=== PATIENT | male | born 1940 | race Caucasian/White ===

== ENCOUNTER 2022-09-02 17:12 | Inpatient (IN) | payer MEDICARE, OTHER ==
[2022-09-02] MEDS ORDERED: Iopamidol-370 76% 500 ML 1 ML ONE (17:30)
[2022-09-02 19:05] LABS: Hemoglobin 15.3 g/dL (14.0-18.0); Mean Corpuscular HGB CONC 33.3 g/dL (32.0-36.0); Mean Corpuscular Hemoglobin 33.8 pg (27.0-31.0); Mean Platelet Volume 8.6 fL (7.4-10.4); Platelet Count 194 10x3/uL (130-400); RBC Distribution Width 11.9 % (11.5-14.5); Red Blood Cell (RBC) Count 4.54 mill/uL (4.70-6.10); White Blood Cell (WBC) Count 15.8 10x3/uL (4.8-10.8)
[2022-09-02 19:20] LABS: Band 3 % (5-11); Eosinophils 2 % (0-10); Lymphocytes 6 % (21-51); MDiff Complete? YES; Macrocytosis SLIGHT = 6-15 cells (100X) (0-5/hpf); Monocytes 20 % (0-10); Neutrophil 67 % (42-75); Platelet Morphology Comment Appears Adequate; Reactive Lymphocytes 1 % (0-10); Stomatocytes SLIGHT = 2-5 cells (100X) (0-1/hpf)
[2022-09-02 19:28] LABS: ALT (SGPT) 23 U/L (8-55); AST (SGOT) 28 U/L (5-34); Albumin 4.1 g/dL (3.4-4.8); Alkaline Phosphatase 46 U/L (40-110); Anion Gap 13 mmol/L (10-20); BUN (Urea Nitrogen) 14 mg/dL (8.4-25.7); Bilirubin, Total 0.9 mg/dL (0.2-1.2); Calc. Creatinine Clearance 0 mL/min (70-130); Carbon Dioxide 26 mmol/L (23-31); Chloride 98 mmol/L (98-107); Estimated GFR 90; Globulin 3.5 g/dL (2.4-3.5); Glucose 93 mg/dL (83-110); Lipase 21 U/L (8-78); Potassium 3.5 mmol/L (3.5-5.1); Protein, Total 7.6 g/dL (5.8-8.1); Sodium 133 mmol/L (136-145)
[2022-09-02] MEDS ORDERED: Morphine 2 MG/ML VIAL ONE (20:21)
[2022-09-02 21:00] LABS: Bilirubin Negative (Negative); Blood, Urine Negative (Negative); Clarity Clear (Clear); Glucose, Urine (Dipstick) Normal (Negative); Ketone, Urine Negative (Negative); Leukocyte Negative Leu/uL (Negative); Nitrite Negative (Negative); Protein, Urine (Dipstick) Negative (Neg-Trace); Specific Gravity, Urine 1.026 (1.002-1.036); Urobilinogen Normal mg/dL (Less than 2)
[2022-09-02] MEDS ORDERED: Piperacillin/Tazobactam 3.375 GM VIAL ONE (22:10)
[2022-09-03 00:02] VITALS: BMI 34.7
[2022-09-03] MEDS ORDERED: Acetaminophen 325 MG TAB PO PRN (01:00)
[2022-09-03] MEDS ORDERED: Ondansetron PF 4 MG/2 ML Vial IVP PRN (01:00)
[2022-09-03] MEDS ORDERED: Ondansetron ODT 4 MG TAB SL PRN (01:00)
[2022-09-03] MEDS: Sodium Chloride 0.9% 1,000 ML IV SCH ×4 (01:20→15:21)
[2022-09-03 02:12] LABS: SARS-CoV-2 NAA Rapid Test Not Detected (NotDetected)
[2022-09-03] MEDS ORDERED: Piperacillin/Tazobactam 3.375 GM in Sodium Chloride 0.9% 100 ML IVPB SCH (04:00)
[2022-09-03] MEDS ORDERED: Ketorolac Tromethamine 30 MG/ML VIAL IVP PRN (05:40)
[2022-09-03] MEDS ORDERED: Morphine 4 MG/ML VIAL SLOW IVP PRN (09:06)
[2022-09-03] MEDS ORDERED: Nitroglycerin 0.4 MG TAB (25 Tab Bottle) SL PRN (09:07)
[2022-09-03] MEDS: Piperacillin/Tazobactam 3.375 GM in Sodium Chloride 0.9% 100 ML IVPB SCH ×2 (11:46→21:09)
[2022-09-03] MEDS ORDERED: Ibuprofen 600 MG TAB PO PRN (19:01)
[2022-09-03] MEDS ORDERED: Acetaminophen 500 MG TAB PO PRN (19:01)
[2022-09-03] MEDS ORDERED: traMADol HCl 50 MG TAB PO PRN (19:02)
[2022-09-04] MEDS: Piperacillin/Tazobactam 3.375 GM in Sodium Chloride 0.9% 100 ML IVPB SCH (04:32)
[2022-09-04] MEDS: Sodium Chloride 0.9% 1,000 ML IV SCH (04:36)
[2022-09-04] MEDS ORDERED: Bupivacaine/Epinephrine 0.25% 30 ML VIAL ONE (06:27)
[2022-09-04] MEDS ORDERED: SUGAMMADEX SODIUM 200 MG/2 ML VIAL ONE (06:38)
[2022-09-04] MEDS ORDERED: Fentanyl 250 MCG/5 ML VIAL ONE (06:38)
[2022-09-04] MEDS ORDERED: Ketamine 50 MG/ML (10ML VIAL) ONE (07:04)
[2022-09-04] MEDS: Carvedilol 6.25 MG TAB PO SCH ×2 (08:48→09:44)
[2022-09-04] MEDS: Amlodipine 5 MG TAB PO SCH ×2 (08:48→09:45)
[2022-09-04 11:41] VITALS: BP 134/79; TEMP 96.8
== END 2022-09-04 14:57 | disposition home or self-care (01) | DRG 343 ==
LOC: ERS 17:12 → SURG A 22:08
PROVIDERS: ADMIT Specialist; ATTEND Specialist
PROC: 0DTJ4ZZ Resection of Appendix, Percutaneous Endoscopic Approach (ICD-10-PCS; principal; 2022-09-04)
DX: K35.80 Unspecified acute appendicitis (principal); I25.10 Atherosclerotic heart disease of native coronary artery without angina pectoris; I10 Essential (primary) hypertension; Z20.822 Contact with and (suspected) exposure to COVID-19; Z87.19 Personal history of other diseases of the digestive system; Z88.8 Allergy status to other drugs, medicaments and biological substances; Z95.5 Presence of coronary angioplasty implant and graft; Z98.890 Other specified postprocedural states
CPT/HCPCS: 36415; 74177; 80053; 81003; 83690; 85025; 86850; 86900; 86901; 87040; 87086; 88304; 93005; 96365; 96375; A4649; J1885; J2272; J2543; J3010; J3490; J7050; Q9967; U0002